=== PATIENT | female | born 1980 | race Caucasian/White ===

== ENCOUNTER 2021-06-17 18:55 | Emergency (ER) | payer BC, OTHER ==
[2021-06-17 19:21] VITALS: BP 115/79; PULSE 84; TEMP 98.4; BMI 25.6
== END 2021-06-17 20:25 | disposition home or self-care (01) ==
LOC: JER 18:55
DX: R07.9 Chest pain, unspecified (principal)
CPT/HCPCS: 71046-TC-FY; 93005; 93010; 99284-25

== ENCOUNTER 2022-05-24 04:43 | Day surgery (SDC) | payer BC, OTHER ==
[2022-05-18 15:35] VITALS: BMI 26.0
[2022-05-24] MEDS ORDERED: ONDANSETRON 4 MG/2 ML VIAL IVPUSH PRN (14:05)
[2022-05-24] MEDS ORDERED: oxyCODONE HCL 5 MG TABLET PO PRN (14:05)
[2022-05-24] MEDS ORDERED: PROPOFOL 20 ML ONE (14:13)
[2022-05-24] MEDS ORDERED: MIDAZOLAM HCL 2 MG/2 ML SINGLE DOSE VIAL ONE (14:13)
[2022-05-24] MEDS ORDERED: FENTANYL CITRATE/PF 50 MCG/ML VIAL ONE (14:13)
[2022-05-24] MEDS ORDERED: ceFAZolin SODIUM 1 GM VIAL ONE (14:32)
[2022-05-24] MEDS ORDERED: ONDANSETRON 4 MG/2 ML VIAL ONE (14:32)
[2022-05-24] MEDS ORDERED: DEXAMETHASONE SOD PHOSPHATE 4 MG/1 ML VIAL ONE (14:32)
[2022-05-24] MEDS ORDERED: ceFAZolin SODIUM 1 GM VIAL IVPB ONE (14:35)
[2022-05-24 17:26] VITALS: RESP 20
[2022-05-24 17:56] VITALS: BP 100/60; PULSE 84; TEMP 98.6
== END 2022-05-24 17:40 | disposition home or self-care (01) ==
LOC: JASU-SURG 04:43
PROVIDERS: ATTEND Obstetrics & Gynecology
PROC: 0UB98ZZ Excision of Uterus, Via Natural or Artificial Opening Endoscopic (ICD-10-PCS; principal; 2022-05-24 11:30)
DX: N92.1 Excessive and frequent menstruation with irregular cycle (principal); N84.0 Polyp of corpus uteri
CPT/HCPCS: 88305-TC; 94760